=== PATIENT | female | born 1980 | race Caucasian/White ===

== ENCOUNTER 2016-11-19 07:02 | Emergency (ER) | payer OTHER ==
[~2016-11-19] VITALS: Ht 165.1 cm; Wt 86.2 kg
[2016-11-19 07:13] VITALS: BP 110/60
[2016-11-19] MEDS ORDERED: IV NORMAL SALINE 1000ML BAG 1,000 ML IV SCH (07:30)
[2016-11-19] MEDS ORDERED: 0.9 % SODIUM CHLORIDE 10 ML DISP.SYRIN. IV PRN (07:30)
--- NOTE | 2016-11-19 07:31 | PHYS DOC ---
Past Medical History Past Medical History: No Pertinent History Past Surgical History: Appendectomy, Cholecystectomy, Hysterectomy Alcohol Use: None Drug Use: None Adult General Chief Complaint Chief Complaint: CHEST PAIN [facility] HPI Patient is a pleasant otherwise healthy 35-year-old female presents with chest pain that began about an hour and half prior to arrival. Patient noted last evening became in increasingly nauseous with no abdominal pain woke this morning with burning sensation with pressure in the central portion of her chest underneath the xiphoid process. Patient admits she's never had this pain before it was worse with position and walking around the room. Patient describes his pain as pressure and squeezing. It does not radiate to her neck, shoulder, back or lower abdomen. She describes some mild nausea but no vomiting , diarrhea or constipation. Patient denies any cough, URI symptoms fevers but she has had some chills with these waves of pain. The pain is not continuous and does wax and wane but never completely resolves. She denies any direct trauma, blood in her stool, UTI symptoms or other complaints. She also denies any trauma, travel outside the country, or other pulmonary embolism risk factors. 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 She has 3 children at home that she's not particularly stressed. She has not a family history. Differential diagnosis for chest pain: Pericarditis, myocarditis, endocarditis, pneumothorax, pneumonia, aortic dissection, esophageal spasm, esophagitis, peptic ulcer disease, acute coronary syndrome, mediastinitis, Boerhaave syndrome , musculoskeletal chest wall pain, costochondritis, intercostal strain, rib fracture, pulmonary contusion, pneumonitis, pleural effusion, pericardial effusion, pericardial tamponode, and pleurisy. Concert upon arrival. Patient had an immediate EKG, chest x-ray, troponin, CMP, CBC and appropriate workup to include aspirin administration. Review of Systems Review of Systems Constitutional: Denies fever or chills [] Eyes: Denies change in visual acuity, redness, or eye pain [] HENT: Denies nasal congestion or sore throat [] Respiratory: Denies cough or shortness of breath [] Cardiovascular: No additional information not addressed in HPI [] GI: Denies abdominal pain, bloody stools or diarrhea patient admits that she is nauseous without vomiting.[] : Denies dysuria or hematuria [] Musculoskeletal: Denies back pain or joint pain [] Integument: Denies rash or skin lesions [] Neurologic: Denies headache, focal weakness or sensory changes [] Endocrine: Denies polyuria or polydipsia [] Current Medications Current Medications Current Medications Medications (Trade) Dose Ordered Sig/Kirstie Start Time Stop Time Status Last Admin Dose Admin Fentanyl Citrate (Fentanyl 2ml Vial) 50 mcg PRN Q15MIN PRN 11/19/16 07:30 11/20/16 07:29 11/19/16 08:06 50 MCG Lorazepam (Ativan) 1 mg 1X ONCE 11/19/16 07:30 11/19/16 07:31 DC 11/19/16 07:41 1 MG Sodium Chloride (Normal Saline Flush) 10 ml QSHIFT PRN 11/19/16 07:30 Allergies Allergies Allergies Coded Allergies Type Severity Reaction Last Updated Verified morphine Allergy Intermediate hives 11/19/16 Yes Physical Exam Physical Exam Vital signs recorded on the chart patient was normotensive, not febrile, not hypoxic, not tachypnea. Constitutional: Well developed, well nourished, no acute distress, non-toxic appearance. Patient is nondiaphoretic and is not pale. HENT: Normocephalic, atraumatic, bilateral external ears normal, oropharynx moist, no oral exudates, nose normal. [] Eyes: PERRLA, EOMI, conjunctiva normal, no discharge. [] Neck: Normal range of motion, no tenderness, supple, no stridor. [] Cardiovascular:Heart rate regular rhythm, no murmur A shows mild tenderness to palpation of the xiphoid process. There is no obvious signs of trauma. Lungs & Thorax: Bilateral breath sounds clear to auscultation [] Abdomen: Bowel sounds normal, soft, no tenderness, no masses, no pulsatile masses. No guarding rebound or organomegaly. Skin: Warm, dry, no erythema, no rash. [] Back: No tenderness, no CVA tenderness. [] Extremities: No tenderness, no cyanosis, no clubbing, ROM intact, no edema. [] Neurologic: Alert and oriented X 3, normal motor function, normal sensory function, no focal deficits noted. [] Psychologic: Affect normal, judgement normal, mood normal. [] Current Patient Data Vital Signs Vital Signs Date Time Temp Pulse Resp B/P (MAP) Pulse Ox O2 Delivery O2 Flow Rate FiO2 11/19/16 07:13 97.7 65 20 110/60 (77) 100 Room Air 97.7 Lab Values Laboratory Tests Test 11/19/16 07:20 11/19/16 07:35 White Blood Count 5.9 x10^3/uL (4.0-11.0) Red Blood Count 4.48 x10^6/uL (3.50-5.40) Hemoglobin 13.7 g/dL (12.0-15.5) Hematocrit 40.4 % (36.0-47.0) Mean Corpuscular Volume 90 fL (79-100) Mean Corpuscular Hemoglobin 31 pg (25-35) Mean Corpuscular Hemoglobin Concent 34 g/dL (31-37) Red Cell Distribution Width 13.0 % (11.5-14.5) Platelet Count 187 x10^3/uL (140-400) Neutrophils (%) (Auto) 81 % (31-73) H Lymphocytes (%) (Auto) 12 % (24-48) L Monocytes (%) (Auto) 6 % (0-9) Eosinophils (%) (Auto) 1 % (0-3) Basophils (%) (Auto) 0 % (0-3) Neutrophils # (Auto) 4.8 x10^3uL (1.8-7.7) Lymphocytes # (Auto) 0.7 x10^3/uL (1.0-4.8) L Monocytes # (Auto) 0.4 x10^3/uL (0.0-1.1) Eosinophils # (Auto) 0.1 x10^3/uL (0.0-0.7) Basophils # (Auto) 0.0 x10^3/uL (0.0-0.2) D-Dimer (Renata) 0.32 ug/mlFEU (0.00-0.50) Sodium Level 138 mmol/L (136-145) Potassium Level 3.5 mmol/L (3.5-5.1) Chloride Level 103 mmol/L (98-107) Carbon Dioxide Level 25 mmol/L (21-32) Anion Gap 10 (6-14) Blood Urea Nitrogen 13 mg/dL (7-20) Creatinine 0.9 mg/dL (0.6-1.0) Estimated GFR (Cockcroft-Gault) 72.1 Glucose Level 125 mg/dL (70-99) H Calcium Level 8.6 mg/dL (8.5-10.1) Magnesium Level 2.1 mg/dL (1.8-2.4) Total Bilirubin 0.4 mg/dL (0.2-1.0) Direct Bilirubin 0.1 mg/dL (0.0-0.2) Aspartate Amino Transferase (AST) 14 U/L (15-37) L Alanine Aminotransferase (ALT) 20 U/L (14-59) Alkaline Phosphatase 63 U/L (46-116) Creatine Kinase 58 U/L (26-192) Creatine Kinase MB (Mass) 0.5 ng/mL (0.0-3.6) Creatine Kinase MB Relative Index % (0-4) Troponin I Quantitative < 0.017 ng/mL (0.000-0.055) XK-Sgd-U-Type Natriuretic Peptide 9 pg/mL (0-124) Total Protein 7.4 g/dL (6.4-8.2) Albumin 3.8 g/dL (3.4-5.0) Lipase 161 U/L (73-393) Thyroid Stimulating Hormone (TSH) 4.444 uIU/mL (0.358-3.74) H Urine Collection Type Unknown Urine Color Yellow Urine Clarity Clear Urine pH 5.0 Urine Specific [place] >=1.030 Urine Protein Negative mg/dL (NEG-TRACE) Urine Glucose (UA) Negative mg/dL (NEG) Urine Ketones (Stick) Negative mg/dL (NEG) Urine Blood Negative (NEG) Urine Nitrite Negative (NEG) Urine Bilirubin Small (NEG) Urine Urobilinogen Dipstick 0.2 mg/dL (0.2 mg/dL) Urine Leukocyte Esterase Negative (NEG) Urine RBC Occ /HPF (0-2) Urine WBC 5-10 /HPF (0-4) Urine Squamous Epithelial Cells Mod /LPF Urine Bacteria Moderate /HPF (0-FEW) Urine Mucus Marked /LPF Laboratory Tests 11/19/16 07:20 Laboratory Tests 11/19/16 07:20 EKG EKG []EKG timed 7:08 AM read by me 11/19/2016 demonstrates normal sinus rhythm heart rate of 60. SC interval 138 which is normal, QRS width of 72 which is normal, QTc was 422 which is normal, patient has no ST segment or T-wave changes consistent with acute cardiac ischemia. She does have some T-wave inversion in V1 and V2 which may be a normal variant. Radiology/Procedures Radiology/Procedures [] [facility] [address] [place] [address] IMAGING REPORT Signed PATIENT: MARILUZ HIGHTOWER ACCOUNT: [id number] : 1980 LOCATION: ER AGE: 35 SEX: F EXAM STATUS: REG ER ORD. PHYSICIAN: REBECCA BAIN MD REASON: chest pain PROCEDURE: CHEST PA & LATERAL Indication chest pain. PA and lateral views of the chest were obtained. No prior plain film imaging of the chest is available. The heart, pulmonary vessels and mediastinum appear normal. The lungs are clear. IMPRESSION: Normal two-view examination of the chest DICTATED and SIGNED BY: GIUSEPPE BARCENAS MD DATE: 11/19/16 0745 CC: REBECCA BAIN MD; MARCELLUS VAUGHN MD ~ Course & Med Decision Making Course & Med Decision Making Pertinent Labs and Imaging studies reviewed. (See chart for details) on presentation patient's complaint of chest pain eventually diagnosis considered upon arrival. Differential diagnosis for chest pain: Pericarditis, myocarditis, endocarditis, pneumothorax, pneumonia, aortic dissection, esophageal spasm, esophagitis, peptic ulcer disease, acute coronary syndrome, mediastinitis, Boerhaave syndrome, musculoskeletal chest wall pain, costochondritis, intercostal strain, rib fracture, pulmonary contusion, pneumonitis, pleural effusion, pericardial effusion, pericardial tamponode, and pleurisy. Patient tells me that their symptoms given during CC are improved. Time is now 7 :45 AM. Patient laboratory work and chest x-ray are still pending. What is back at this time is normal CBC. Patient tells me that their symptoms given during CC are improved. We reviewed labs and radiology reports with patient and any family at bedside. Patient says she's felt somewhat better after the pain medications and Ativan. Patient's troponin is negative, patient's EKG is unremarkable, patient's 2 view chest x- rays unremarkable. Patient's d-dimer is normal. Patient's CMP is unremarkable. Patient's lipase is normal. Patient denied discussed possible etiologies of her abdominal pain with nausea. Although his much higher than her lower abdomen patient could have dyspepsia, or a gastritis. I will treat her empirically with a GI cocktail see if it helps improve her symptoms. I do not believe that her symptoms are cardiac in nature. History: Highly suspicious 2 points moderately suspicious 1. slightly suspicious 0 point EKG: ST segment depression 2. nonspecific repolarization disturbance 1. normal 0 point Age: Greater than 65 2 points, 65-45 1., less than 45 years old 0 points Risk factors:> 3 risk factors 2 points, 1-2 risk factors one point, no risk factors 0 point Troponin: > 2 times normal 2 points, 1-2 times normal 1., normal limits 0 point Total score: Score % pts MACE/n MACE Policy 0-3 32% 1.9% 0.05% Discharge 4-6 51% 413/3136 13% 1.3% Observation Risk management 7-10 17% 518/1045 50% 2.8% Observation Treatment, CAG []By her heart score if she has a low risk assessment for acute coronary syndrome and she will be discharged from our facility with follow-up and treatment with GI and cardiology. Laboratory Tests Test 11/19/16 07:20 11/19/16 07:35 White Blood Count 5.9 x10^3/uL (4.0-11.0) Red Blood Count 4.48 x10^6/uL (3.50-5.40) Hemoglobin 13.7 g/dL (12.0-15.5) Hematocrit 40.4 % (36.0-47.0) Mean Corpuscular Volume 90 fL (79-100) Mean Corpuscular Hemoglobin 31 pg (25-35) Mean Corpuscular Hemoglobin Concent 34 g/dL (31-37) Red Cell Distribution Width 13.0 % (11.5-14.5) Platelet Count 187 x10^3/uL (140-400) Neutrophils (%) (Auto) 81 % (31-73) Lymphocytes (%) (Auto) 12 % (24-48) Monocytes (%) (Auto) 6 % (0-9) Eosinophils (%) (Auto) 1 % (0-3) Basophils (%) (Auto) 0 % (0-3) Neutrophils # (Auto) 4.8 x10^3uL (1.8-7.7) Lymphocytes # (Auto) 0.7 x10^3/uL (1.0-4.8) Monocytes # (Auto) 0.4 x10^3/uL (0.0-1.1) Eosinophils # (Auto) 0.1 x10^3/uL (0.0-0.7) Basophils # (Auto) 0.0 x10^3/uL (0.0-0.2) D-Dimer (Renata) 0.32 ug/mlFEU (0.00-0.50) Sodium Level 138 mmol/L (136-145) Chloride Level 103 mmol/L (98-107) Carbon Dioxide Level 25 mmol/L (21-32) Anion Gap 10 (6-14) Blood Urea Nitrogen 13 mg/dL (7-20) Estimated GFR (Cockcroft-Gault) 72.1 Glucose Level 125 mg/dL (70-99) Calcium Level 8.6 mg/dL (8.5-10.1) Total Bilirubin 0.4 mg/dL (0.2-1.0) Direct Bilirubin 0.1 mg/dL (0.0-0.2) Aspartate Amino Transf (AST/SGOT) 14 U/L (15-37) Alkaline Phosphatase 63 U/L (46-116) Creatine Kinase 58 U/L (26-192) Creatine Kinase MB (Mass) 0.5 ng/mL (0.0-3.6) Creatine Kinase MB Relative Index % (0-4) Troponin I Quantitative < 0.017 ng/mL (0.000-0.055) Total Protein 7.4 g/dL (6.4-8.2) Albumin 3.8 g/dL (3.4-5.0) Lipase 161 U/L (73-393) Urine Collection Type Unknown Urine Color Yellow Urine Clarity Clear Urine pH 5.0 Urine Specific [place] >=1.030 Urine Protein Negative mg/dL (NEG-TRACE) Urine Glucose (UA) Negative mg/dL (NEG) Urine Ketones (Stick) Negative mg/dL (NEG) Urine Blood Negative (NEG) Urine Nitrite Negative (NEG) Urine Bilirubin Small (NEG) Urine Urobilinogen Dipstick 0.2 mg/dL (0.2 mg/dL) Urine Leukocyte Esterase Negative (NEG) Urine RBC Occ /HPF (0-2) Urine WBC 5-10 /HPF (0-4) Urine Squamous Epithelial Cells Mod /LPF Urine Bacteria Moderate /HPF (0-FEW) Urine Mucus Marked /LPF Impression: Chest pain of unclear etiology, dyspepsia, nausea or unclear etiology. Dragon Disclaimer Dragon Disclaimer This electronic medical record was generated, in whole or in part, using a voice recognition dictation system. Departure Departure Impression: Primary Impression: Chest pain Additional Impression: Dyspepsia Disposition: HOME, SELF-CARE Condition: IMPROVED Referrals: MARCELLUS VAUGHN MD (PCP) Patient Instructions: Chest Pain (Nonspecific), Gastroesophageal Reflux Disease , Adult Additional Instructions: My discharge plan Follow up: In addition patient is asked to followup with their primary doctor, within a week for followup examination and to address patient's ongoing medical conditions. I would ask you follow-up with your primary care doctor for referral to cardiology. Although you are low risk you are not without risk Page could have significant scored artery disease with no injury to her heart at this time. Patient is advised that in the Emergency Department primary complaints are addressed and only in light of known signs and symptoms. Patient should return immediately to the emergency department if new signs and symptoms develop or patient's condition worsens in any way. At time of discharge patient was in stable condition and had verbalized understanding of the discharge instructions. Scripts Ondansetron (ZOFRAN ODT) 4 Mg Tab.rapdis 4 MG PO BID Y for NAUSEA/VOMITING for 5 Days, #10 TAB Prov: REBECCA BAIN MD 11/19/16 Pantoprazole Sodium (PROTONIX) 40 Mg Tablet.dr 1 TAB PO DAILY, #30 TAB 5 Refills Prov: REBECCA BAIN MD 11/19/16 Hydrocodone Bit/Acetaminophen (HYDROCODONE-APAP 5-325 ) 1 Each Tablet 1-2 TAB PO PRN Q6HRS Y for PAIN for 5 Days, #10 TAB 0 Refills Prov: REBECCA BAIN MD 11/19/16 Sucralfate (CARAFATE) 1 Gm Tablet 1 TAB PO QID, #60 TAB 1 Refill Prov: REBECCA BAIN MD 11/19/16 Problem Qualifiers REBECCA BAIN MD Nov 19, 2016 07:31
[2016-11-19 07:35] LABS: BASO % 0 % (0-3); EOS % 1 % (0-3); HEMATOCRIT 40.4 % (36.0-47.0); HEMOGLOBIN 13.7 g/dL (12.0-15.5); LYMPH # 0.7 x10^3/uL (1.0-4.8); LYMPH % 12 % (24-48); MEAN CORPUSCULAR HEMOGLOBIN 31 pg (25-35); MEAN CORPUSCULAR HGB CONC 34 g/dL (31-37); MEAN CORPUSCULAR VOLUME 90 fL (79-100); MONO % 6 % (0-9); NEUT % 81 % (31-73); PLATELET COUNT 187 x10^3/uL (140-400); RED BLOOD COUNT 4.48 x10^6/uL (3.50-5.40); WHITE BLOOD COUNT 5.9 x10^3/uL (4.0-11.0)
[2016-11-19] MEDS: fentaNYL PF VIAL 100 MCG/2 ML VIAL IV PRN ×2 (07:42→08:06)
[2016-11-19 07:43] LABS: CALCIUM 8.6 mg/dL (8.5-10.1); CREATININE 0.9 mg/dL (0.6-1.0); GFR 72.1; POTASSIUM 3.5 mmol/L (3.5-5.1)
[2016-11-19 07:46] LABS: BILIRUBIN,URINE SMALL (NEG); GLUCOSE,URINE NEGATIVE (NEG); NITRITE,URINE NEGATIVE (NEG); PROTEIN,URINE NEGATIVE (NEG-TRACE); UROBILINOGEN,URINE 0.2 mg/dL (0.2 mg/dL)
[2016-11-19 07:49] LABS: ALBUMIN 3.8 g/dL (3.4-5.0); DIRECT BILIRUBIN 0.1 mg/dL (0.0-0.2); MAGNESIUM 2.1 mg/dL (1.8-2.4); TOTAL BILIRUBIN 0.4 mg/dL (0.2-1.0); TOTAL PROTEIN 7.4 g/dL (6.4-8.2)
[2016-11-19 07:49] LABS: BACTERIA,URINE MODERATE /HPF (0-FEW); SQUAMOUS EPITHELIAL CELL,UR MOD /LPF
--- NOTE | 2016-11-19 07:49 | RAD ---
Indication chest pain. PA and lateral views of the chest were obtained. No prior plain film imaging of the chest is available. The heart, pulmonary vessels and mediastinum appear normal. The lungs are clear. IMPRESSION: Normal two-view examination of the chest
[2016-11-19 07:50] LABS: RBC,URINE OCC /HPF (0-2)
--- NOTE | 2016-11-19 07:55 | EKG ---
[facility] [address] [place] [address] Test Date: 2016-11-19 Test Time: 07:08:43 Pat Name: MARILUZ HIGHTOWER Department: Room: Gender: F [employer]: : 1980 Requested By: REBECCA BAIN Order Number: [id number] Reading MD: Monster Mccracken Measurements Intervals [place] Rate: 60 P: 52 [place]: 138 QRS: 39 QRSD: 72 T: 26 QT: 422 QTc: 422 Interpretive Statements SINUS RHYTHM Electronically Signed On 11-23-2016 11:01:09 CDT by Monster Mccracken
[2016-11-19 07:58] LABS: CKMB MASS 0.5 ng/mL (0.0-3.6); CREATINE KINASE 58 U/L (26-192)
[2016-11-19] MEDS ORDERED: LIDO:MAALOX:DONNATAL 1:1:1 15 ML SINGLE DOSE SWSW ONE (08:30)
[2016-11-19] MEDS ORDERED: PANT40TA3 PO (08:36)
[2016-11-19] MEDS ORDERED: SUCR1TAB35 PO (08:36)
[2016-11-19] MEDS ORDERED: HYDR-2758 PO (08:36)
[2016-11-19] MEDS ORDERED: ONDA4TAB10 PO (08:36)
== END 2016-11-19 08:44 | disposition home or self-care (01) ==
LOC: ER 07:02
DX: R07.89 Other chest pain (principal); R10.13 Epigastric pain; R11.0 Nausea; R68.83 Chills (without fever); Z90.49 Acquired absence of other specified parts of digestive tract; Z90.710 Acquired absence of both cervix and uterus; Z88.5 Allergy status to narcotic agent
CPT/HCPCS: 36415; 71020; 80048; 80076; 81001; 82553; 83690; 83735; 83880; 84443; 84484; 85025; 85379; 87086; 93005; 96361; 96374; 96375; 99285; J2060; J3010; J7030

== ENCOUNTER 2019-08-26 00:54 | Emergency (ER) | payer OTHER ==
[~2019-08-26] VITALS: Ht 165.1 cm; Wt 80.0 kg
[2019-08-26 00:54] VITALS: BP 125/68
[~2019-08-26 00:54] MED LIST: HYDR-2761 PO; ONDA4TAB10 PO; PANT40TA77 PO; SUCR1TAB35 PO
[2019-08-26] MEDS ORDERED: LORA0.5T96 PO (01:30)
[2019-08-26] MEDS ORDERED: LORazepam 0.5 MG TABLET PO ONE (01:30)
--- NOTE | 2019-08-26 01:34 | PHYS DOC ---
Past Medical History Past Medical History: No Pertinent History Past Surgical History: Appendectomy, Cholecystectomy, Hysterectomy Smoking Status: Never Smoker Alcohol Use: Occasionally Drug Use: None General Adult EDM: Chief Complaint: ANXIETY/PANIC ATTACK HPI: HPI: Patient is a 38 year old female presents via EMS with report of anxiety which started this evening. Patient was out drinking some wine with a friend when she started to have the symptoms. Patient has been hyperventilating and patient's family became concerned and called 911. Patient denies any suicidal or homicidal ideation. Reports increased life stressors. Denies . Review of Systems: Review of Systems: Constitutional: Denies fever or chills Eyes: Denies redness or eye pain HENT: Denies nasal congestion or sore throat Respiratory: Denies cough or shortness of breath Cardiovascular: Denies chest pain or palpitations GI: Denies abdominal pain, nausea, or vomiting : Denies dysuria or hematuria Musculoskeletal: Denies back pain or joint pain Integument: Denies rash or skin lesions Neurologic: Denies headache, focal weakness or sensory changes Psychiatric: Reports anxiety; denies suicidal or homicidal ideation Complete systems were reviewed and found to be within normal limits, except as documented in this note. Current Medications: Current Medications Medications (Trade) Dose Ordered Sig/Kirstie Start Time Stop Time Status Last Admin Dose Admin Lorazepam (Ativan) 0.5 mg 1X ONCE 08/26/19 01:30 08/26/19 01:31 Allergies: Allergies: Allergies Coded Allergies Type Severity Reaction Last Updated Verified morphine Allergy Intermediate hives 11/19/16 Yes Physical Exam: PE: Constitutional: Well developed, well nourished, anxious HENT: Normocephalic, atraumatic Eyes: Conjunctiva normal, no discharge Neck: Normal range of motion, no tenderness, supple Cardiovascular: Tachycardia, peripheral pulses equal +2 (bilateral radial) Lungs & Thorax: No respiratory distress, equal chest rise and fall Abdomen: Soft, no tenderness Skin: Warm, dry, no erythema, no rash Extremities: No tenderness, ROM intact, no edema Neurologic: Alert and oriented X 3, normal motor function, normal sensory function, no focal deficits noted Psychologic: Affect anxious, judgment normal EKG: EKG: [] Radiology/Procedures: Radiology/Procedures: [] Course & Med Decision Making: Course & Med Decision Making Patient presents with history of present illness and physical exam consistent for panic attack. Anxiety addressed with oral Ativan. Patient with interval improvement of symptoms. Patient stable for discharge with outpatient follow-up with PCP. Discussed findings and plan with patient, who acknowledges understanding and agreement. Prescription for Ativan provided. [facility] report obtained. Patient without recent controlled substance prescriptions. Dragon Disclaimer: Dragon Disclaimer: This electronic medical record was generated, in whole or in part, using a voice recognition dictation system. Departure Departure Impression: Primary Impression: Anxiety Disposition: HOME, SELF-CARE Condition: STABLE Referrals: MARCELLUS VAUGHN MD (PCP) Patient Instructions: Anxiety and Panic Attacks, [id number] Scripts Lorazepam (ATIVAN) 0.5 Mg Tablet 0.5 MG PO TID PRN for ANXIETY, #10 TAB Prov: JAIME ODONNELL DO 08/26/19 Justicifation of Admission Dx: Justifications for Admission: Justification of Admission Dx: N/A JAIME ODONNELL DO Aug 26, 2019 01:34
== END 2019-08-26 01:45 | disposition home or self-care (01) ==
LOC: ER 00:54
DX: F41.9 Anxiety disorder, unspecified (principal); Z88.5 Allergy status to narcotic agent
CPT/HCPCS: 99283

== ENCOUNTER → 2019-09-11 | Outpatient (CLI) | payer OTHER ==
[2019-08-26 00:54] VITALS: BP 125/68
[~2019-09-11] MED LIST changes: +LORA0.5T96 PO
--- NOTE | 2019-09-11 13:06 | KCIC ---
EXAMINATION: Magnetic resonance imaging (MRI) of the brain and brainstem without contrast 09/11/2019 11:00 AM HISTORY: Seizure-like activity. TECHNIQUE: Multiplanar multi-weighted MRI of the brain and brainstem was performed without intravenous contrast using the seizure brain protocol. COMPARISON: None available FINDINGS: The scalp and calvarium are normal. The superior sagittal sinus demonstrates normal venous flow. The corpus callosum is normal in shape and signal intensity. The posterior fossa is unremarkable. The pituitary and sella are normal. The brainstem and craniocervical junction are unremarkable. Hippocampi are symmetric in signal intensity and morphology. There is no heterotopic wu matter identified. No malformation of cortical development. No suspicious intracranial mass. Diffusion weighted images reveal no hyperintensities to suggest acute cerebral infarction. The susceptibility weighted sequences reveal no evidence of acute or chronic hemorrhage. The ventricles are normal in size and position without evidence of hydrocephalus. There is a tiny left maxillary mucus retention cyst. The visualized portions of the mastoids are unremarkable. The orbits appear normal. Normal flow voids are demonstrated in the carotid arteries and basilar artery. IMPRESSION: No structural abnormality to account for patient's seizures. Electronically signed by: Alethea Fuentes MD (09/11/2019 1:02 PM) [facility]
== END | disposition home or self-care (01) ==
LOC: KCIC MRI 10:58
PROVIDERS: ATTEND Family Medicine
DX: R56.9 Unspecified convulsions (principal); J34.1 Cyst and mucocele of nose and nasal sinus
CPT/HCPCS: 70551